=== PATIENT | male | born 1970 | race Caucasian/White ===

== ENCOUNTER → 2021-04-10 | Outpatient (CLI) | payer BC ==
[~2021-04-10] MED LIST: CALCA500CH PO; IBUP600 PO; ONDA4ODT MM; OXYACE5T PO; PROM25 PO; RXOXYACE PO; SULTRISS PO; TAMS.4ER PO; TRAM50 PO
== END ==
LOC: LAB SHORT 12:45 → LAB 12:45
DX: K21.9 Gastro-esophageal reflux disease without esophagitis (principal)
CPT/HCPCS: 87338